=== PATIENT | male | born 1975 | race Caucasian/White ===

== ENCOUNTER → 2018-03-09 10:11 | Outpatient (CLI) | payer MEDICAID | END | disposition home or self-care (01) | LOC: D.CT 10:11 | DX: M41.9 Scoliosis, unspecified (principal) ==

== ENCOUNTER 2019-11-01 05:58 | Day surgery (SDC) | payer OTHER ==
[2019-10-31 11:41] LABS: BASOPHILS 0.8 % (0-2); EOSINOPHILS 1.5 % (0-7); HEMATOCRIT 43.5 % (42.0-54.0); HEMOGLOBIN 14.8 g/dL (13.5-17.5); IMMATURE GRANULOCYTES 0.2 % (0-5); LYMPHOCYTES 26.2 % (15-50); MCH 31.6 pg (26.0-34.0); MCV 92.8 fL (80.0-100.0); MEAN PLATELET VOLUME 8.9 fL (7.4-10.4); MONOCYTES 6.6 % (2-11); NEUTROPHILS 64.7 % (40-80); PLATELET COUNT 237 10x3/uL (130-400); RBC 4.69 10x6/uL (4.20-6.10); RDW 12.7 % (11.5-14.5); WBC 11.4 10x3/uL (4.8-10.8)
[2019-10-31 12:10] LABS: CALC OSMOLALITY 279 mosm/kg (275-300); CALCIUM 8.9 mg/dL (8.5-10.1); CARBON DIOXIDE 28.6 mmol/L (21.0-32.0); CHLORIDE - SERUM 101 mmol/L (98-107); GLUCOSE 99 mg/dL (74-106); POTASSIUM - SERUM 4.4 mmol/L (3.5-5.1); SODIUM 138 mmol/L (136-145); UREA NITROGEN 25 mg/dL (7-18); eGFR NON AFRICAN AMERICAN 87 mL/min (90-120)
[~2019-11-01] VITALS: Ht 177.8 cm; Wt 86.2 kg
[~2019-11-01 05:58] MED LIST: LOTENSIN20 MG PO; XALATAN 0.0052.5 ML RIGHT EYE
[2019-11-01 06:35] VITALS: BP 127/89; Ht 177.8 cm; Wt 86.2 kg
--- NOTE | 2019-11-01 14:37 | NUR ---
1120-JUICE AND WATER TO ROOM. VSS.DENIES PAIN. CL IN EASY REACH
--- NOTE | 2019-11-01 14:38 | NUR ---
1145-DENIES COMPLAINTS. VSS. REMOVED IV WITH CATH INTACT,DISPOSED INTO SHARPS.
--- NOTE | 2019-11-01 14:39 | NUR ---
1155-DISCHARGE CRITERIA MET.REVIEWED POST OPERATIVE INSTRUCTIONS AND FOLLOW UP APPOINTMENT. VERBALIZED UNDERSTANDING. DRESSING CDI
--- NOTE | 2019-11-01 14:41 | NUR ---
1200-PT DRESSED. ESCORTED OUT VIA W/C WITH FRIEND AWAITING TO DRIVE HOME
--- NOTE | 2019-11-06 17:47 | OP ---
PATIENT NAME: ANT BYERS MEDICAL RECORD: [id number] :77 LOCATION:[facility] ADMISSION DATE: SURGEON: KRYSTLE MALONE MD DATE OF OPERATION: 11/01/2019 PREOPERATIVE DIAGNOSIS: Symptomatic ventral hernias times 2. POSTOPERATIVE DIAGNOSIS: Symptomatic incarcerated ventral hernias times 2. PROCEDURE: Laparoscopic symptomatic incarcerated ventral hernia repairs with Ventralight ST 6 inch round mesh utilizing the Echo positioning system. SURGEON: Krystle Malone MD LOGISTICS TECH: None. BLOOD LOSS: Minimal. ANESTHESIA: General. COMPLICATIONS: None. The risks, possible complications and alternatives to the procedure were explained to the patient. He elects to proceed. The discussion specifically included, but was not limited to, bleeding requiring emergency reoperation, infection, intestinal injury. OPERATIVE COURSE: The patient was conveyed the operating room electively on 11/01/2019. General anesthesia was induced by the anesthesia staff. The abdomen was sterilely prepped and draped. A small skin incision was accomplished in the left upper quadrant. Through the skin incision, a Veress needle was inserted. CO2 insufflation was begun. Once a sufficient pneumoperitoneum had been achieved, a 5-mm trocar was inserted in the left side of the abdomen and two 5 mm trocars were inserted in the right side of the abdomen. During insertion of the Veress needle and all trocars, there appeared to have been no injury to the bowels, any intraperitoneal or retroperitoneal structures. An abdominal survey was undertaken. Utilizing the Harmonic scalpel, I began to take down the falciform ligament as well as a portion of the triangular ligament overlying the liver. I created a prevesicular flap. There was no injury to the bladder during this procedure. There were 2 ventral hernias, one was at the umbilicus and one was cephalad to the umbilicus. The incarcerated fat was reduced in its entirety. I then cleaned some preperitoneal fat from around these hernia defects. I brought a 6-inch Ventralight ST mesh onto the sterile field and hydrated it. I then rolled it up, advanced it down through the 12-mm trocar and then unrolled it. A small skin incision was accomplished between the 2 hernia defects. Here I passed a laparoscopic suture passer and grasped the tail of the Echo positioning system and brought it out through the anterior abdominal wall. I then cut the tubing and attached it to an inflation device and inflated. This created a flat mesh, which I then abutted against the anterior abdominal wall. OPERATIVE REPORT [id number] ANT BYERS Utilizing the SecureStrap Tacker, I tacked the mesh in place and then I completed the herniorrhaphy with circumferential tacking of the SorbaFix Tacker. The Echo positioning system was removed in its entirety. The 12-mm trocar was removed. The fascia and muscle at that site was closed with a single 0 Vicryl suture utilizing the Cameron-Benigno suture closure device. The other skin incisions were closed with interrupted intracuticular 3-0 Vicryls. The skin incision in the central abdomen was closed with a single 4-0 Vicryl Rapide suture. The patient was then extubated and conveyed to post-anesthesia care unit where he was in stable condition. TRANSINT:[id number] Voice Confirmation ID: [id number] DOCUMENT ID: [id number] KRYSTLE MALONE MD at 1747 CC: [id number] DICTATION DATE: 11/05/19309 SENSOR OPERATOR: 11/05/[address] [facility] 11/01/19 [id number] [place] [address]
== END 2019-11-01 12:00 | disposition home or self-care (01) ==
LOC: D.OPS 05:58
PROVIDERS: ATTEND Surgery
DX: K43.9 Ventral hernia without obstruction or gangrene (principal)